=== PATIENT | female | born 1970 | race Caucasian/White ===

== ENCOUNTER 2017-09-07 12:58 | Emergency (ER) | payer OTHER ==
[~2017-09-07] VITALS: Ht 160 cm; Wt 98.9 kg
== END 2017-09-07 14:57 | disposition home or self-care (01) ==
LOC: ED 12:58
DX: S00.33XA Contusion of nose, initial encounter (principal); F17.200 Nicotine dependence, unspecified, uncomplicated; Z91.048 Other nonmedicinal substance allergy status; Z88.8 Allergy status to other drugs, medicaments and biological substances; W22.8XXA Striking against or struck by other objects, initial encounter
CPT/HCPCS: 70486; 99284

== ENCOUNTER 2019-10-29 12:02 | Emergency (ER) | payer OTHER ==
[~2019-10-29] VITALS: Ht 160 cm; Wt 98.9 kg
[2019-10-29] MEDS ORDERED: VENTOLIN HFA18 GM INH (12:28)
[2019-10-29] MEDS ORDERED: TESSALON PERLE100 MG PO (12:28)
== END 2019-10-29 12:49 | disposition home or self-care (01) ==
LOC: ED 12:02
DX: B34.9 Viral infection, unspecified (principal); J40 Bronchitis, not specified as acute or chronic; F17.200 Nicotine dependence, unspecified, uncomplicated
CPT/HCPCS: 99283; A9270

== ENCOUNTER 2020-09-06 16:25 | Emergency (ER) | payer OTHER ==
[~2020-09-06] VITALS: Ht 160 cm; Wt 98.9 kg
[~2020-09-06 16:25] MED LIST: TESSALON PERLE100 MG PO; VENTOLIN HFA18 GM INH
[2020-09-06] MEDS ORDERED: METFORMIN HCL500 M1 PO (16:38)
[2020-09-06] MEDS ORDERED: BUPROPION XL300 MG (16:38)
[2020-09-06] MEDS ORDERED: TRULICITY0.75 MG/0. SUB-Q (16:39)
[2020-09-06] MEDS ORDERED: ONDANSETRON ODT4 MG PO (18:03)
== END 2020-09-06 18:15 | disposition home or self-care (01) ==
LOC: ED 16:25
DX: K22.4 Dyskinesia of esophagus (principal); K21.9 Gastro-esophageal reflux disease without esophagitis; I10 Essential (primary) hypertension; Z88.8 Allergy status to other drugs, medicaments and biological substances; Z79.899 Other long term (current) drug therapy; Z79.84 Long term (current) use of oral hypoglycemic drugs
CPT/HCPCS: 96374; 96375; 99283-25; J1200; J2405

== ENCOUNTER 2021-08-20 10:46 | Emergency (ER) | payer OTHER ==
[~2021-08-20] VITALS: Ht 160 cm; Wt 98.9 kg
[~2021-08-20 10:46] MED LIST changes: +BUPROPION XL300 MG; +METFORMIN HCL500 M1 PO; +ONDANSETRON ODT4 MG PO; +TRULICITY0.75 MG/0. SUB-Q
[2021-08-20] MEDS ORDERED: CYCLOBENZAPRINE10 MG PO (11:05)
[2021-08-20] MEDS ORDERED: TRULICITY1.5 MG/0.5 SQ (11:05)
[2021-08-20] MEDS ORDERED: ONDANSETRON ODT8 MG PO (11:05)
[2021-08-20] MEDS ORDERED: PIOGLITAZONE HC15 MG PO (11:05)
[2021-08-20] MEDS ORDERED: MONODOX100 MG PO (11:14)
[2021-08-20] MEDS ORDERED: NAPROSYN500 MG PO (11:14)
== END 2021-08-20 12:29 | disposition home or self-care (01) ==
LOC: ED 10:46
DX: L03.011 Cellulitis of right finger (principal); I10 Essential (primary) hypertension; E11.9 Type 2 diabetes mellitus without complications; F17.200 Nicotine dependence, unspecified, uncomplicated; Z88.8 Allergy status to other drugs, medicaments and biological substances; Z91.09 Other allergy status, other than to drugs and biological substances; Z79.84 Long term (current) use of oral hypoglycemic drugs; Z79.899 Other long term (current) drug therapy
CPT/HCPCS: 29125; 99283-25; J0696; J1885

== ENCOUNTER 2021-12-02 17:08 | Emergency (ER) | payer OTHER ==
[~2021-12-02] VITALS: Ht 160 cm; Wt 98.9 kg
[~2021-12-02 17:08] MED LIST changes: +CYCLOBENZAPRINE10 MG PO; +MONODOX100 MG PO; +NAPROSYN500 MG PO; +ONDANSETRON ODT8 MG PO; +PIOGLITAZONE HC15 MG PO; +TRULICITY1.5 MG/0.5 SQ
[2021-12-02] MEDS ORDERED: FREESTYLE LITE1 EAC1 MISC (18:04)
== END 2021-12-02 19:23 | disposition home or self-care (01) ==
LOC: ED 17:08
DX: M54.41 Lumbago with sciatica, right side (principal); E11.9 Type 2 diabetes mellitus without complications; I10 Essential (primary) hypertension; F17.200 Nicotine dependence, unspecified, uncomplicated; Z88.8 Allergy status to other drugs, medicaments and biological substances; Z79.899 Other long term (current) drug therapy
CPT/HCPCS: 99283

== ENCOUNTER 2024-03-03 12:19 | Emergency (ER) | payer OTHER ==
[~2024-03-03] VITALS: Ht 160 cm; Wt 116.0 kg
[2024-03-03 13:34] LABS: BILIRUBIN, URINE NEGATIVE (negative); BLOOD/HGB, URINE NEGATIVE (Negative); KETONE, URINE NEGATIVE (Negative); LEUK ESTERASE, URINE NEGATIVE (negative); NITRITE, URINE NEGATIVE (negative)
[2024-03-03] MEDS ORDERED: SODIUM CHLORIDE 0.9% 1,000 ML IV ONE (14:00)
[2024-03-03] MEDS ORDERED: KETOROLAC TROMETHAMINE 30 MG/ML VIAL IV ONE (14:00)
[2024-03-03 14:02] LABS: ALBUMIN 3.1 g/dL (3.4-5.0); ALBUMIN/GLOBULIN RATIO 0.66 (1.1-2.4); ANION GAP 13.4 (7-21); BILIRUBIN, TOTAL 0.4 ng/dL (0.2-1.0); BUN/CREATININE RATIO 16.86 (6.0-28.6); CALCIUM 9.1 mg/dL (8.5-10.1); CREATININE, SERUM 0.83 mg/dL (0.55-1.02); POTASSIUM 4.4 mmol/L (3.5-5.1); PROTEIN, TOTAL 7.8 g/dL (6.4-8.2)
[2024-03-03 15:45] LABS: BASOPHILS 0.6 % (0-2); EOSINOPHILS 2.2 % (0-6); HEMATOCRIT 37.5 % (35.0-50.0); HEMOGLOBIN 12.5 g/dL (12.0-18.0); LYMPHOCYTES 20.6 % (24-44); MCH 27.9 (27-36); MCHC 33.4 g/dl (30-36); MCV 83.6 fl (81-99); MONOCYTES 6.1 % (0-12); NEUTROPHILS 70.5 % (39-80); PLATELET COUNT 318 K/uL (140-440); RBC 4.49 M/ul (4.3-5.7); RDW 13.6 (10.5-15.0)
[2024-03-03 16:15] VITALS: BP 141/91
== END 2024-03-03 16:15 | disposition home or self-care (01) ==
LOC: ED 12:19
PROVIDERS: Emergency Medicine
DX: R10.31 Right lower quadrant pain (principal); E11.9 Type 2 diabetes mellitus without complications; I10 Essential (primary) hypertension; F17.200 Nicotine dependence, unspecified, uncomplicated; Z88.8 Allergy status to other drugs, medicaments and biological substances; Z79.899 Other long term (current) drug therapy; Z79.4 Long term (current) use of insulin
CPT/HCPCS: 36415; 74177; 80048; 80053; 81003; 83690; 84703; 85025; 99284-25; J1885; J7030; Q9967

== ENCOUNTER 2024-09-14 13:47 | Emergency (ER) | payer OTHER ==
[~2024-09-14] VITALS: Ht 160 cm; Wt 116.6 kg
[~2024-09-14 13:47] MED LIST changes: +FLUOXETINE HCL40 MG PO; +FREESTYLE LITE1 EAC1 MISC; +JARDIANCE10 MG; +LANTUS SOL100 UNIT/1 SUB-Q; +LIPITOR40 MG PO
[2024-09-14] MEDS ORDERED: CYCLOBENZAPRINE5 MG PO (14:30)
[2024-09-14] MEDS ORDERED: LANTUS100 UNITS/ SUB-Q (14:30)
[2024-09-14] MEDS ORDERED: FLUOXETINE HCL60 MG PO (14:30)
[2024-09-14] MEDS ORDERED: JARDIANCE25 MG PO (14:30)
[2024-09-14] MEDS ORDERED: LIDODERM1 EACH TOP (15:00)
[2024-09-14] MEDS ORDERED: OXYCODONE HCL5 MG PO (15:00)
[2024-09-14 15:12] VITALS: BP 141/58
== END 2024-09-14 15:12 | disposition home or self-care (01) ==
LOC: ED 13:47
DX: M25.531 Pain in right wrist (principal); X50.0XXA Overexertion from strenuous movement or load, initial encounter; I10 Essential (primary) hypertension; E11.9 Type 2 diabetes mellitus without complications; F17.200 Nicotine dependence, unspecified, uncomplicated; Z88.8 Allergy status to other drugs, medicaments and biological substances; Z79.4 Long term (current) use of insulin; Z79.899 Other long term (current) drug therapy
CPT/HCPCS: 29125; 73110; 99283